=== PATIENT | female | born 1980 | race American Indian/Alaskan Native ===

== ENCOUNTER 2024-01-18 15:19 | Emergency (ER) | payer MEDICAID ==
[2024-01-18] MEDS: Iopamidol 612 MG/ML 100 ML Bottle IVPUSH ONE (16:22)
[2024-01-18] MEDS: Sodium Chloride 0.9% 10 ML Syringe FLUSH ONE (16:22)
[2024-01-18] MEDS: Ketorolac 30 MG/ML SDV IVPUSH ONE (16:30)
[2024-01-18] MEDS: Piperacillin/Tazobactam 4.5 GM in Sodium Chloride 0.9% 100 ML IV ONE (16:30)
[2024-01-18] MEDS: amLODIPine 10 MG Tab PO STA (17:45)
[2024-01-18] MEDS ORDERED: amLODIPine 10 MG Tab PO SCH (21:00)
== END 2024-01-18 18:43 | disposition home or self-care (01) ==
LOC: JD.ED 15:19
DX: L03.211 Cellulitis of face (principal); L02.91 Cutaneous abscess, unspecified; Z79.899 Other long term (current) drug therapy
CPT/HCPCS: 70491; 70491-26; 96365; 96375; 99283-25; 99284; A9270-GY; J1885; J2543; J3490; Q9967

== ENCOUNTER 2024-01-18 23:54 | Emergency (ER) | payer MEDICAID ==
[2024-01-19] MEDS: Amoxicillin/Clavulanate K 875-125 MG Tab PO ONE (00:20)
[2024-01-19] MEDS: Ketorolac 60 MG/2 ML SDV IM ONE (00:20)
== END 2024-01-19 00:29 | disposition home or self-care (01) ==
LOC: JD.ED 23:54
DX: K04.7 Periapical abscess without sinus (principal)
CPT/HCPCS: 96372; 99283; A9270; J1885

== ENCOUNTER 2024-01-19 13:21 | Emergency (ER) | payer MEDICAID ==
[2024-01-19] MEDS: cefTRIAXone 1 GM, Lidocaine 1% 2.1 ML IM ONE (14:31)
== END 2024-01-19 14:35 | disposition home or self-care (01) ==
LOC: JD.ED 13:21
DX: K04.7 Periapical abscess without sinus (principal); L03.211 Cellulitis of face; Z79.899 Other long term (current) drug therapy
CPT/HCPCS: 96372; 99283; J0696; J3490

== ENCOUNTER 2024-05-06 04:07 | Emergency (ER) | payer MEDICAID | END 2024-05-06 04:10 | LOC: JD.ED 04:07 | DX: Z53.21 Procedure and treatment not carried out due to patient leaving prior to being seen by health care provider (principal) ==

== ENCOUNTER 2024-12-07 17:39 | Emergency (ER) | payer MEDICAID ==
[2024-12-07 18:22] LABS: BASOPHILS ABSOLUTE AUTO 0.1 K/mm3 (0.0-0.2); BASOPHILS PERCENT AUTO 0.8 % (0.0-1.0); EOSINOPHILS ABSOLUTE AUTO 0.1 K/mm3 (0.0-0.4); EOSINOPHILS PERCENT AUTO 1.2 % (0.0-6.0); HEMATOCRIT 40.3 % (37.0-47.0); HEMOGLOBIN 13.1 gm/dl (12.0-16.0); IMMATURE GRAN ABSOLUTE AUTO 0.04 K/mm3 (0.00-0.05); IMMATURE GRAN PERCENT AUTO 0.4 % (0.0-0.4); LYMPHOCYTES ABSOLUTE AUTO 2.8 K/mm3 (1.0-4.8); LYMPHOCYTES PERCENT AUTO 28.3 % (24.0-44.0); MEAN CORPUSCULAR HEMOGLOBIN 29.2 pg (28.0-32.0); MEAN CORPUSCULAR HGB CONC 32.5 g/dl (32.0-36.0); MEAN CORPUSCULAR VOLUME 89.8 fl (83.0-99.0); MEAN PLATELET VOLUME 9.4 fl (9.4-12.3); MONOCYTES ABSOLUTE AUTO 0.5 K/mm3 (0.0-0.8); NEUTROPHILS ABSOLUTE AUTO 6.4 K/mm3 (1.8-7.7); NEUTROPHILS PERCENT AUTO 64.3 % (41.0-71.0); PLATELET COUNT,PLT 402 K/mm3 (150-400); RED BLOOD CELL COUNT 4.49 M/mm3 (4.10-5.30); WHITE BLOOD CELL COUNT,WBC 9.98 K/mm3 (3.9-11.3)
[2024-12-07 18:44] LABS: A/G RATIO 0.8 (1-2); ALBUMIN 2.9 g/dl (3.4-5.0); ANION GAP 13.7 (5-15); BILIRUBIN TOTAL 0.3 mg/dL (0.2-1.0); BUN/CREATININE RATIO 13.6 (14-18); CALCIUM 8.8 mg/dL (8.5-10.1); CREATININE 1.1 mg/dL (0.55-1.02); EST CRCL DRUG DOSING (CG) 61.1 mL/min; POTASSIUM,K 3.7 mEq/L (3.5-5.1); PROTEIN TOTAL,TP 6.4 g/dl (6.4-8.2)
[2024-12-07 19:10] LABS: TSH 0.419 uIU/mL (0.358-3.74)
== END 2024-12-07 19:10 | disposition home or self-care (01) ==
LOC: JD.ED 17:39
DX: N93.8 Other specified abnormal uterine and vaginal bleeding (principal); I10 Essential (primary) hypertension
CPT/HCPCS: 36415; 80053; 82550; 84443; 85025; 86850; 86900; 86901; 99283; 99284